=== PATIENT | male | born 1960 | race Caucasian/White ===

== ENCOUNTER 2017-03-02 23:02 | Emergency (ER) | payer BC, OTHER ==
[2017-03-02 23:12] VITALS: RESP 18
[2017-03-02] MEDS ORDERED: SODIUM CHLORIDE 0.9% 500 ML IV STA (23:23)
[2017-03-02] MEDS ORDERED: ACETAMINOPHEN TAB 500 MG TAB PO STA (23:23)
[2017-03-02] MEDS ORDERED: METOCLOPRAMIDE 5 MG/ML 2 ML VIAL IVP STA (23:23)
[2017-03-02] MEDS ORDERED: diphenhydrAMINE 50 MG/ML 1 ML VIAL IVP STA (23:23)
--- NOTE | 2017-03-02 23:32 | ED ---
Headache HPI - General Mode of arrival: ambulatory Limitations: no limitations <Lynn Hoffman - Last Filed: 03/03/17 02:36> <Ricardo Ibarra - Last Filed: 03/03/17 05:33> - General Chief Complaint: Headache Stated Complaint: migraine Time Seen by Provider: 03/02/17 23:15 - History of Present Illness Initial Comments: 56-year-old male patient presents to emergency department today for complaints of left frontal headache that started around 6 PM this evening. Patient states that it started as a slight headache at 6pm, he laid down to take a nap, and woke with more severe pain. Patient did take 650 mg of aspirin without relief pain. Patient denies any history of headaches or migraines. Patient denies any nausea, vomiting, dizziness, weakness, confusion, blurred, or double vision. Patient does have a family history of brain aneurysm and is concerned for this. (Lynn Hoffman) - Related Data Home Medications Medication Instructions Recorded Confirmed Aspirin 650 mg PO ONCE PRN 03/02/17 03/02/17 Moexipril [Univasc] 7.5 mg PO QAM 03/02/17 03/02/17 Tamsulosin [Flomax] 0.4 mg PO DAILY@1700 03/02/17 03/02/17 Allergies Allergy/AdvReac Type Severity Reaction Status Date / Time No Known Allergies Allergy Verified 03/02/17 23:17 Review of Systems ROS Other: All systems not noted in ROS Statement are negative. <Lynn Hoffman - Last Filed: 03/03/17 02:36> ROS Other: All systems not noted in ROS Statement are negative. <Ricardo Ibarra - Last Filed: 03/03/17 05:33> ROS Statement: Those systems with pertinent positive or pertinent negative responses have been documented in the HPI. Past Medical History Past Medical History: Hypertension, Prostate Disorder <Lynn Hoffman - Last Filed: 03/03/17 02:36> General Exam Limitations: no limitations General appearance: alert, in no apparent distress Head exam: Present: atraumatic, normocephalic, normal inspection, other (No temporal tenderness noted) Eye exam: Present: normal appearance, PERRL, EOMI. Absent: scleral icterus, conjunctival injection, periorbital swelling Pupils: Present: normal accommodation ENT exam: Present: normal exam, normal oropharynx, mucous membranes moist, TM's normal bilaterally Neck exam: Present: normal inspection. Absent: tenderness, meningismus, lymphadenopathy Respiratory exam: Present: normal lung sounds bilaterally. Absent: respiratory distress, wheezes, rales, rhonchi, stridor Cardiovascular Exam: Present: regular rate, normal rhythm, normal heart sounds. Absent: systolic murmur, diastolic murmur, rubs, gallop, clicks GI/Abdominal exam: Present: soft, normal bowel sounds. Absent: distended, tenderness, guarding, rebound, rigid Extremities exam: Present: normal inspection, full ROM, normal capillary refill. Absent: tenderness, pedal edema, joint swelling, calf tenderness Neurological exam: Present: alert, oriented X3, CN II-XII intact Expanded Patient oriented to: Present: person, place, time Speech: Present: fluid speech Cranial nerves: EOM's Intact: Normal, Tongue Deviation: Normal, Nystagmus: Normal Motor strength exam: RUE: 5, LUE: 5, RLE: 5, LLE: 5 Psychiatric exam: Present: normal affect, normal mood Skin exam: Present: warm, dry, intact, normal color. Absent: rash <Lynn Hoffman - Last Filed: 03/03/17 02:36> Course <Lynn Hoffman - Last Filed: 03/03/17 02:36> <Ricardo Ibarra - Last Filed: 03/03/17 05:33> Vital Signs 03/02/17 03/03/17 03/03/17 23:09 00:51 03:05 Temperature 97 F L 98.4 F 98.1 F Pulse Rate 75 67 62 Respiratory 18 18 18 Rate Blood Pressure 169/72 136/64 127/59 O2 Sat by Pulse 97 96 99 Oximetry - Reevaluation(s) Reevaluation #1: 03/02/17 23:51 Patient informed nursing staff that his headache was relieved, he refused medications at this time. We will go ahead with [address] scan of the brain. (Lynn Hoffman) Medical Decision Making - Lab Data Result diagrams: 03/02/17 23:41 03/02/17 23:41 - Radiology Data Radiology results: report reviewed, image reviewed <Lynn Hoffman - Last Filed: 03/03/17 02:36> - Lab Data Result diagrams: 03/02/17 23:41 03/02/17 23:41 <Ricardo Ibarra - Last Filed: 03/03/17 05:33> - Medical Decision Making 56-year-old male patient presents to emergency department with complaints of headache. Lab work as well as noncontrast CT of the brain were unremarkable. CT angiogram of the head and neck were performed due to patient's family history of brain aneurysm. CT angiogram head and neck was negative for aneurysm. Dr. Ibarra did see and evaluate the patient as well as speak to the radiologist. Headache did resolve while in emergency department without any medications. Patient will be discharged home with instructions to follow up with his primary care physician in one to 2 days for recheck. Return parameters discussed. Patient instructed to return for any new, worsening, or concerning symptoms. Patient verbalized understanding and agreed with this plan. (Lynn Hoffman) Control male presenting with chief complaint headache. Headache was gradual in onset. Patient does have family history of brain aneurysm and is concerned his headache may be related to brain aneurysm. Patient took aspirin prior to arrival. He refuses further medication to treat his headache while in the emergency department. CT is obtained without contrast which is negative for hemorrhage, CT angiography is performed to evaluate aneurysm. There is no intracranial aneurysm. CT read does show dissection versus artifact of the brachiocephalic trunk. I did speak with the radiologist and he doesn't believe this is likely artifact. Patient is headache free. He will be discharged with outpatient follow-up. (Ricardo Ibarra) - Lab Data Lab Results 03/02/17 03/02/17 Range/Units 23:41 23:41 WBC 9.8 (3.8-10.6) k/uL RBC 4.81 (4.30-5.90) m/uL Hgb 15.1 (13.0-17.5) gm/dL Hct 43.1 (39.0-53.0) % MCV 89.5 (80.0-100.0) fL MCH 31.4 (25.0-35.0) pg MCHC 35.0 (31.0-37.0) g/dL RDW 12.0 (11.5-15.5) % Plt Count 234 (150-450) k/uL Neutrophils % 63 % Lymphocytes % 30 % Monocytes % 4 % Eosinophils % 2 % Basophils % 1 % Neutrophils # 6.2 (1.3-7.7) k/uL Lymphocytes # 2.9 (1.0-4.8) k/uL Monocytes # 0.4 (0-1.0) k/uL Eosinophils # 0.2 (0-0.7) k/uL Basophils # 0.1 (0-0.2) k/uL Sodium 138 (137-145) mmol/L Potassium 4.4 (3.5-5.1) mmol/L Chloride 105 (98-107) mmol/L Carbon Dioxide 25 (22-30) mmol/L Anion Gap 8 mmol/L BUN 25 H (9-20) mg/dL Creatinine 0.90 (0.66-1.25) mg/dL Est GFR (MDRD) Af Amer >60 (>60 ml/min/1.73 sqM) Est GFR (MDRD) Non-Af >60 (>60 ml/min/1.73 sqM) Glucose 106 H (74-99) mg/dL Calcium 9.1 (8.4-10.2) mg/dL Total Bilirubin 0.2 (0.2-1.3) mg/dL AST 24 (17-59) U/L ALT 38 (21-72) U/L Alkaline Phosphatase 77 (38-126) U/L Total Protein 6.1 L (6.3-8.2) g/dL Albumin 3.7 (3.5-5.0) g/dL - Radiology Data Noncontrast CT of the brain revealed no acute intracranial process. CT angiogram of the head and neck #1. No evidence for proximal intracranial closed disease or significant stenosis. #2 no evidence for hemodynamically significant stenosis of anginal carotid arteries. #3 there is a linear filling defect of the anterior proximal brachiocephalic artery which may be artifact versus dissection although limited evaluation due to artifact from adjacent dense contrast. Number for hydrogen historically may be related by dedicated ultrasound. (Lynn Hoffman) Disposition Time of Disposition: 02:36 <Lynn Hoffman - Last Filed: 03/03/17 02:36> <Ricardo Ibarra - Last Filed: 03/03/17 05:33> Clinical Impression: Acute headache Disposition: HOME SELF-CARE Condition: Stable Instructions: Acute Headache (ED) Additional Instructions: Follow up with primary care physician in 1-2 days for recheck. Return for any worsening, new, or concerning symptoms. Referrals: Claude Delcid MD [Primary Care Provider] - 1-2 days
[2017-03-02 23:59] LABS: Basophils # (A) 0.1 k/uL (0-0.2); Basophils % (A) 1 %; CH 31.3; CHCM 35.1; Eosinophils # (A) 0.2 k/uL (0-0.7); Eosinophils % (A) 2 %; HCT 43.1 % (39.0-53.0); HDW 2.47; HGB 15.1 gm/dL (13.0-17.5); Luc # (Auto) 0.13; Luc % (Auto) 1; Lymphocytes # (A) 2.9 k/uL (1.0-4.8); Lymphocytes % (A) 30 %; MCH 31.4 pg (25.0-35.0); MCV 89.5 fL (80.0-100.0); Mean Platelet Volume 6.2; Monocytes # (A) 0.4 k/uL (0-1.0); Monocytes % (A) 4 %; Neutrophils # (A) 6.2 k/uL (1.3-7.7); Neutrophils % (A) 63 %; RBC 4.81 m/uL (4.30-5.90); WBC 9.8 k/uL (3.8-10.6); WBC (Perox) 9.78
[2017-03-03 00:27] LABS: ALT 38 U/L (21-72); AST 24 U/L (17-59); Alkaline Phosphatase 77 U/L (38-126); Anion Gap 8 mmol/L; Blood Urea Nitrogen 25 mg/dL (9-20); Calcium 9.1 mg/dL (8.4-10.2); Carbon Dioxide 25 mmol/L (22-30); Chloride 105 mmol/L (98-107); Glucose 106 mg/dL (74-99); Non-African American GFR(MDRD) >60 (>60 ml/min/1.73 sqM); Potassium 4.4 mmol/L (3.5-5.1); Sodium 138 mmol/L (137-145); Total Bilirubin 0.2 mg/dL (0.2-1.3); Total Protein 6.1 g/dL (6.3-8.2)
--- NOTE | 2017-03-03 00:46 | CT ---
EXAM: CT Head Without Intravenous Contrast CLINICAL HISTORY: Reason: Pain TECHNIQUE: Axial computed tomography images of the head/brain without intravenous contrast. CTDIvol: 57.4 mGy DLP: 1047 mGy-cm. This CT exam was performed using one or more of the following dose reduction techniques: automated exposure control, adjustment of the mA and/or kV according to patient size, and/or use of iterative reconstruction technique. COMPARISON: No relevant prior studies available. FINDINGS: No evidence for acute intracranial hemorrhage, hydrocephalus, or herniation. No evidence for a depressed calvarial fracture. Age indeterminate irregularity of the nasal bones. Please correlate for point tenderness. Posterior fossa is not well evaluated. Intracranial vascular calcifications. The bilateral mastoid air cells are clear. The visualized portions of the paranasal sinuses are clear without air fluid levels. IMPRESSION: No evidence for acute intracranial hemorrhage, hydrocephalus, or herniation. [employer] 03/03/17 02:46 Call From [facility] Dr. Ibarra on 03/03 02:31 (-04:00)
[2017-03-03] MEDS ORDERED: RX INFO: IV CONTRAST WAS GIVEN 1 EACH MISC MISCELLANE PRN (00:48)
--- NOTE | 2017-03-03 02:07 | CT ---
CTA head and neck with and without contrast INDICATION: Pain TECHNIQUE: CT angiogram of the head and neck with and without contrast. This CT exam was performed using one or more of the following dose reduction techniques: automated exposure control, adjustment of the mA and/or kV according to patient size, and/or use of iterative reconstruction technique. Radiation Dose: CTDIvol: 116.9 mGy DLP: 23.4 mGy-cm CTDIvol: 5.4 mGy DLP: 231.5 mGy-cm COMPARISON: none FINDINGS: CTA Head: Calcifications at the carotid siphons. No evidence for significant stenosis of the proximal intracranial vessels. No definite evidence for aneurysm, although limited in evaluation due to technique. The dural sinus appear patent. The oral cavity and oropharynx is not well evaluated due to artifact from dental hardware. CTA Neck: The origin of the proximal great vessels are not well evaluated. There is a linear filling defect at the anterior proximal brachiocephalic artery which may be artifact although limited evaluation due to artifact from adjacent dense contrast. Atherosclerotic calcification at the origin of the right internal carotid artery with less than 50% stenosis. Atherosclerotic calcification at the left carotid bulb and origin of the left internal carotid artery with less than 50% stenosis. The cervical vertebral arteries appear patent. Heterogeneous appearance of the thyroid gland. Subpleural blebs of the right greater than left lung apex. Degenerative changes of the cervical spine most prominent at C4/C5. IMPRESSION: 1. No evidence for proximal intracranial occlusive disease or significant stenosis. 2. No evidence for hemodynamically significant stenosis of the internal carotid arteries. 3. There is a linear filling defect at the anterior proximal brachiocephalic artery which may be artifact vs dissection although limited evaluation due to artifact from adjacent dense contrast. 4. Heterogeneous thyroid gland may be further evaluated by a dedicated ultrasound.
[2017-03-03 03:06] VITALS: BP 127/59; PULSE 62; TEMP 98.1
== END 2017-03-03 03:06 | disposition home or self-care (01) ==
LOC: EC 23:02
DX: R51 Headache (principal); R93.8 Abnormal findings on diagnostic imaging of other specified body structures; I10 Essential (primary) hypertension; N42.9 Disorder of prostate, unspecified; Z79.899 Other long term (current) drug therapy; Z82.49 Family history of ischemic heart disease and other diseases of the circulatory system; Z53.20 Procedure and treatment not carried out because of patient's decision for unspecified reasons
CPT/HCPCS: 36415; 80053; 85025; 70496; 70450; 70498; 99284; 96360; 96361 ×2; Q9967

== ENCOUNTER → 2025-02-02 | Outpatient (CLI) | payer MEDICARE, OTHER ==
[2025-02-02 12:23] LABS: Blood Urea Nitrogen 27 mg/dL (9-20)
[2025-02-02 12:24] LABS: African American GFR (CKD) >90 (>60 ml/min/1.73 sqM); Non-African American GFR(CKD) >90 (>60 ml/min/1.73 sqM)
--- NOTE | 2025-02-02 14:25 | CT ---
EXAMINATION TYPE: CT urogram wo/w con CT DLP: 2019 mGycm, Automated exposure control for dose reduction was used. DATE OF EXAM: 02/02/2025 1:52 PM COMPARISON: CT low dose lung 04/27/2020, abdominal ultrasound 06/11/2016 CLINICAL INDICATION:Male, 64 years old with history of R31.0 GROSS HEMATURIA; PHH, Urinating blood cl ots TECHNIQUE: Urogram of the abdomen and pelvis was performed before and after the administration of 100 cc of IV c ontrast Isovue 300 contrast. Delayed imaging was performed. Coronal and sagittal reformats were perfo rmed. One or more CT dose reduction strategies were utilized during this examination. 2D and 3D recon structions are performed to assist visualization of the urinary tract on a separate workstation. FINDINGS: GENITOURINARY: RIGHT KIDNEY AND URETER: No calculi. No hydronephrosis or hydroureter. No renal mass or other lesions . No urothelial lesions: no filling defect, dilation, stricture or wall thickening. LEFT KIDNEY AND URETER: No calculi. No hydronephrosis or hydroureter. No renal mass or other lesions. No urothelial lesions: no filling defect, dilation, stricture or wall thickening. URINARY BLADDER: No calculi. Right wall small urinary bladder diverticulum measuring up to 1.8 cm. Ti ny left urinary bladder wall diverticulum. Enhancing mass within the posterior right lower urinary bl adder projecting into the lumen measuring 2.8 x 2.5 x 2.9 cm (series 9, image 77 and series 11, image 87). REPRODUCTIVE: Enlarged prostate gland measuring 5.1 cm in transverse dimension. Coarse prostate calci fications noted. ABDOMEN LIVER: Few hepatic cysts with the largest in the left hepatic lobe measuring up to 1.9 cm. GALLBLADDER AND BILE DUCTS: Unremarkable PANCREAS: Unremarkable. SPLEEN: Unremarkable. ADRENAL GLANDS: Unremarkable. STOMACH AND BOWEL: Periampullary duodenal diverticulum. Colonic diverticulosis which is most pronounc ed involving the descending colon and sigmoid colon. No evidence for acute diverticulitis. No evidenc e of bowel obstruction. PERITONEUM: No evidence of pneumoperitoneum, free fluid, or adenopathy. VASCULATURE: Atherosclerotic calcifications are present throughout the abdominal aorta and its branch es. No abdominal aortic aneurysm. MUSCULOSKELETAL: No acute osseous abnormalities. No aggressive osseous lesion. SOFT TISSUE/ABDOMINAL WALL: Unremarkable. LOWER CHEST: Minimal dependent bilateral lower lobe subsegmental atelectasis.. IMPRESSION: 1. Enhancing 2.9 cm urinary bladder mass highly concerning for urinary bladder malignancy until prov en otherwise. Urology consult with direct visualization is recommended. 2. No suspicious enhancing renal or ureteral neoplasm. 3. No evidence of urolithiasis. 4. Couple of urinary bladder diverticulum. 5. Colonic diverticulosis without evidence of acute diverticulitis. 6. Mild prostatomegaly. [facility], , 02/02/2025 2:23 PM
== END | disposition home or self-care (01) ==
LOC: RADCTMAIN 11:29
PROVIDERS: ATTEND Urology
DX: N40.0 Benign prostatic hyperplasia without lower urinary tract symptoms (principal); K57.30 Diverticulosis of large intestine without perforation or abscess without bleeding; N32.3 Diverticulum of bladder; R31.0 Gross hematuria; N32.89 Other specified disorders of bladder
CPT/HCPCS: 82565; 84520; 74178; 36415; 74400; Q9967